=== PATIENT | female | born 1930 | race Caucasian/White ===

== ENCOUNTER → 2018-02-18 | Day surgery (SDC) | payer OTHER, MEDICARE ==
[~2018-02-18] VITALS: Ht 154.9 cm; Wt 61.7 kg
[~2018-02-18] MED LIST: ALPRAZOLAM0.5 M4 PO; AMLODIPINE BESYL5 M1 PO; BENICAR HCT 401 EAC1 PO; CITALOPRAM HBR10 MG PO; LIPITOR20 M2 PO; LOPRESSOR50 M1 PO; VITAMIN D1000 UNIT PO
--- NOTE | 2018-02-18 13:31 | Operative Report ---
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 Sedation was obtained and her perianal tissues were prepped and draped. Digital rectal examination was revealing for polypoid mass left lateral anal canal. Perianal nerve block was then created with cocktail local anesthesia. Rigid proctoscopy showed solitary anal polyp. The area was probed at the crypts but could not identify an area of fistula communication. There was inflammatory area 5 cm from the anal verge on the left anterior side. Probing the area of abscess with lacrimal duct probe failed to identify a fistulous communication. It appeared to be fairly remote to the anus without any fibrotic cord palpable between it and the anus. Did not appear to be an anal fistula. I therefore excised the area sharply and passed off the field. There is granulation tissue which was curetted clean. No fistulous tract again was seen. I closed the skin with interrupted 4-0 nylon sutures. The rectal polyp was excised with cautery and passed off the field. Bacitracin ointment applied and sterile dressings applied. Patient tolerated procedure well CC: Destiny Rose APRN
== END ==
LOC: STS 02:26
DX: K62.1 Rectal polyp (principal); L73.2 Hidradenitis suppurativa; I10 Essential (primary) hypertension; D56.9 Thalassemia, unspecified; M19.90 Unspecified osteoarthritis, unspecified site; Z87.891 Personal history of nicotine dependence
CPT/HCPCS: 88305; J1885; J2250